=== PATIENT | male | born 1995 | race Caucasian/White ===

== ENCOUNTER 2017-09-25 15:31 | Outpatient (CLI) | payer BC ==
--- NOTE | 2017-09-25 16:08 | RAD ---
LEFT FOREARM TWO VIEWS: History: N79.632 Comparison: None. FINDINGS: No fracture. No malalignment. No cortical abnormality is appreciated. IMPRESSION: No acute abnormality. POS: [facility]
== END 2017-09-25 15:32 | disposition home or self-care (01) ==
LOC: SCSRAD 15:31
PROVIDERS: ATTEND Family Medicine
DX: M79.632 Pain in left forearm (principal)

== ENCOUNTER 2018-01-16 09:42 | Emergency (ER) | payer BC ==
[2018-01-16] MEDS ORDERED: Lidocaine 2% 10 ML INJ ONE (10:22)
[2018-01-16] MEDS ORDERED: Adacel (T-DAP) 0.5 ML VIAL ONE (10:24)
== END 2018-01-16 11:22 | disposition home or self-care (01) ==
LOC: ERS 09:42
DX: S61.312A Laceration without foreign body of right middle finger with damage to nail, initial encounter (principal); F90.9 Attention-deficit hyperactivity disorder, unspecified type; Z87.891 Personal history of nicotine dependence; Z23 Encounter for immunization; W25.XXXA Contact with sharp glass, initial encounter
CPT/HCPCS: 12002; 90471; 90715

== ENCOUNTER 2018-02-10 23:05 | Emergency (ER) | payer BC ==
--- NOTE | 2018-02-10 23:40 | RAD ---
LEFT ANKLE THREE VIEWS: HISTORY: Left ankle pain. TECHNIQUE: AP, lateral, and oblique views of the left ankle were obtained. FINDINGS: Images demonstrate extensive soft tissue swelling lateral to the lateral malleolus. This likely repr esents soft tissue injury. No evidence of acute bony lesions seen. IMPRESSION: Lateral left ankle soft tissue injury and likely hematoma without evidence of adjacent bony pathology seen. POS: [facility]
--- NOTE | 2018-02-11 08:04 | RAD ---
2 VIEWS LEFT FOREARM: Date: 02/11/18 COMPARISON: None. HISTORY: Left forearm swelling after inner arm incident/trauma. FINDINGS: Two views of the left forearm show no evidence of acute fracture or dislocation. No radiopaque foreig n body is seen. IMPRESSION: Unremarkable exam. POS: [facility]
== END 2018-02-11 00:32 | disposition home or self-care (01) ==
LOC: ERS 23:05
DX: S93.402A Sprain of unspecified ligament of left ankle, initial encounter (principal); S50.812A Abrasion of left forearm, initial encounter; F90.9 Attention-deficit hyperactivity disorder, unspecified type; Z87.891 Personal history of nicotine dependence; X50.1XXA Overexertion from prolonged static or awkward postures, initial encounter